=== PATIENT | female | born 1960 | race African-American/Black ===

== ENCOUNTER 2022-03-11 17:47 | Emergency (ER) | payer BC ==
[~2022-03-11] VITALS: Ht 167.6 cm; Wt 90.9 kg
[2022-03-11] VITALS (8 sets, daily range): BP systolic 124–144; BP diastolic 78–93
[2022-03-11] MEDS ORDERED: SIMVASTATIN5 MG PO (18:07)
[2022-03-11] MEDS ORDERED: NORVASC2.5 M1 PO (18:07)
[2022-03-11] MEDS ORDERED: NAPROXEN500 MG PO (19:29)
== END 2022-03-11 20:27 | disposition home or self-care (01) | DRG 563 ==
LOC: ED 17:47
PROC: 2W3CX1Z Immobilization of Right Lower Arm using Splint (ICD-10-PCS; principal; 2022-03-11)
DX: S52.131A Displaced fracture of neck of right radius, initial encounter for closed fracture (principal); W01.0XXA Fall on same level from slipping, tripping and stumbling without subsequent striking against object, initial encounter; Y92.524 Gas station as the place of occurrence of the external cause